=== PATIENT | female | born 1950 | race Caucasian/White ===

== ENCOUNTER 2016-11-10 15:43 | Emergency (ER) | payer OTHER ==
[2016-11-10 16:59] LABS: PLATELET COUNT 205 x10^3mcL (130-400); RED CELL DISTRIBUTION WIDTH 12.3 % (11.5-14.5)
[2016-11-10 17:01] LABS: UA SPECIFIC GRAVITY 1.015 (1.005-1.035); microscopic required? YES; urine erythrocyte 1+ (NEGATIVE)
[2016-11-10 17:03] LABS: BASOPHIL % 0 % (0-2)
[2016-11-10 17:25] LABS: FREE THYROXINE INDEX 2.6 ug/dL (1.4-4.5); T4(THYROXINE) 7.4 ug/dL (4.7-13.3)
[2016-11-10 17:31] LABS: ALBUMIN 3.6 g/dL (3.4-5.0); ALKALINE PHOSPHATASE 62 U/L (46-116); ALT/SGPT 18 U/L (14-59); BILIRUBIN TOTAL 0.54 mg/dL (0.20-1.00); C REACTIVE PROTEIN 3.9 mg/dL (<=0.9); CALCIUM 9.3 mg/dL (8.5-10.1); CARBON DIOXIDE 29.6 mmol/L (21-32); CHLORIDE SERUM 100 mmol/L (98-107); CREATINE KINASE 76 U/L (26-192); CREATININE SERUM 0.8 mg/dL (0.6-1.0); GFR1 > 60 mL/min; GLUCOSE SERUM 109 mg/dL (74-106); POTASSIUM SERUM 3.8 mmol/L (3.5-5.1); SODIUM SERUM 136 mmol/L (136-145); TOTAL PROTEIN, SERUM 7.3 g/dL (6.4-8.2)
[2016-11-10 17:39] LABS: T3 TOTAL 0.81 ng/mL
[2016-11-10 18:05] LABS: ERYTHROCYTE SED RATE 41 mm/hr (0-30)
[2016-11-10 18:17] LABS: AST/SGOT 23 U/L (15-37)
[2016-11-10 18:19] LABS: CK-MB < 0.5 ng/mL (0-3.6)
[2016-11-11 03:02] VITALS: BP 138/44
== END 2016-11-10 20:27 | disposition left against medical advice (07) ==
LOC: ED 15:43
PROVIDERS: Specialist
DX: N83.9 Noninflammatory disorder of ovary, fallopian tube and broad ligament, unspecified (principal)
CPT/HCPCS: 36600; 83880; 84439; Q9967